=== PATIENT | female | born 1995 | race Caucasian/White ===

== ENCOUNTER 2020-02-03 13:51 | Inpatient (IN) | payer MEDICAID ==
[~2020-02-03] VITALS: Ht 170.2 cm; Wt 64.0 kg
[2020-02-03 01:30] VITALS: BP 103/62
[2020-02-03] MEDS ORDERED: ACETAMINOPHEN 325MG TABLET PO ONE (16:15)
[2020-02-03] MEDS ORDERED: LIDOCAINE HCL 1% 20ML VIAL (Pyxis) INJ INFIL ONE (18:30)
[2020-02-03] MEDS ORDERED: CEFAZOLIN 1000MG PREMIX 50 ML IV ONE (18:30)
[2020-02-03] MEDS ORDERED: ACETAMINOPHEN 325MG TABLET PO PRN (18:45)
[2020-02-03] MEDS ORDERED: HYDROCODONE/ACETAMINOPHEN 5/325MG TABLET PO PRN (18:45)
[2020-02-03] MEDS ORDERED: ONDANSETRON HCL 4MG/2ML INJ IV PRN (18:45)
[2020-02-03 20:49] LABS: BASOPHILS % 0.6 % (0.0-2.0); EOSINOPHILS % 0.4 % (0.0-5.0); HEMATOCRIT. 32.8 % (36.0-48.0); HEMOGLOBIN. 11.2 g/dL (12.0-16.0); LYMPHOCYTES % 14.5 % (20.0-50.0); MEAN CORPUSCULAR HEMOGLOBIN 29.6 pg (28.0-32.0); MEAN PLATELET VOLUME 7.4 fl (7.4-10.4); MONOCYTES % 5.9 % (2.0-8.0); NEUTROPHILS % 78.6 % (40.0-76.0); PLATELET 282 x1000/uL (130-400); RED BLOOD CELL COUNT 3.77 mill/uL (4.2-5.4); RED CELL DISTRIBUTION WIDTH 14.7 % (11.6-14.6)
[2020-02-03 20:57] LABS: CHLORIDE 106 mEq/L (98-107)
[2020-02-03 21:29] LABS: INR 0.9; PARTIAL THROMBOPLASTIN TIME 27.1 sec (23.4-31.0); PROTHROMBIN TIME 10.1 sec (9.6-11.0)
[2020-02-04 01:00] VITALS: BP 103/62
[2020-02-04 04:00] VITALS: BP 108/62
[2020-02-04 12:00] VITALS: BP 106/68
[2020-02-04] MEDS ORDERED: BACITRACIN 15GM TUBE TOP ONE (13:22)
[2020-02-04] MEDS ORDERED: BUPIVACAINE/EPINEPH/PF 0.25%/0.0005 10ML ONE ×2 (13:22→17:34)
[2020-02-04] MEDS ORDERED: BUPIVACAINE HCL/PF 0.25% (2.5MG/ML) 10ML ONE (13:22)
[2020-02-04] MEDS ORDERED: BACITRACIN 50,000 UNITS/VIAL ONE ×2 (13:22→17:39)
[2020-02-04] MEDS ORDERED: NORMAL SALINE 0.9% 10 ML SYR ONE (13:22)
[2020-02-04] MEDS ORDERED: SKIN ADHESIVE 0.7 GM EA TOP ONE (13:23)
[2020-02-04] MEDS ORDERED: EPINEPHRINE 1:1000 1 MG/ML AMP ONE (14:28)
[2020-02-04] MEDS ORDERED: VANCOMYCIN HCL 1 GM/VIAL ONE (15:18)
[2020-02-04] MEDS ORDERED: ATROPINE SULFATE 0.1MG/ML 10ML DISP.SYRIN ONE (17:39)
[2020-02-04] MEDS ORDERED: ONDANSETRON HCL 4MG/2ML INJ IV PRN (18:15)
[2020-02-04] MEDS ORDERED: HYDROCODONE/ACETAMINOPHEN 5/325MG TABLET PO PRN ×2 (18:15)
[2020-02-04] MEDS ORDERED: MAGNESIUM HYDROXIDE 400MG/5ML 30ML UDC PO PRN (18:15)
[2020-02-04] MEDS ORDERED: ACETAMINOPHEN 325MG TABLET PO PRN (18:15)
[2020-02-04] MEDS ORDERED: DIPHENHYDRAMINE INJ IV PRN (18:27)
[2020-02-04] MEDS ORDERED: MORPHINE PCA 50MG/50ML IV PRN (18:27)
[2020-02-04] MEDS ORDERED: NALOXONE INJ IV PRN (18:30)
[2020-02-04] MEDS ORDERED: ONDANSETRON INJ IV PRN (18:30)
[2020-02-04 20:00] VITALS: BP 102/55
[2020-02-04] MEDS: CEFAZOLIN 2,000 MG in DEXT 5% WATER 100 ML IV SCH ×2 (21:00→22:33)
[2020-02-05] VITALS: BP 102/69
[2020-02-05 04:00] VITALS: BP 98/55
[2020-02-05] MEDS: CEFAZOLIN 2,000 MG in DEXT 5% WATER 100 ML IV SCH (04:36)
[2020-02-05 06:37] LABS: BASOPHILS % 0.8 % (0.0-2.0); EOSINOPHILS % 0.6 % (0.0-5.0); HEMATOCRIT. 30.1 % (36.0-48.0); LYMPHOCYTES % 14.1 % (20.0-50.0); MEAN CORPUSCULAR HEMOGLOBIN 29.1 pg (28.0-32.0); MEAN CORPUSCULAR VOLUME 87.5 fL (81.0-99.0); MEAN PLATELET VOLUME 7.8 fl (7.4-10.4); MONOCYTES % 7.3 % (2.0-8.0); NEUTROPHILS % 77.2 % (40.0-76.0); PLATELET 244 x1000/uL (130-400); RED BLOOD CELL COUNT 3.44 mill/uL (4.2-5.4); RED CELL DISTRIBUTION WIDTH 14.5 % (11.6-14.6)
[2020-02-05 06:54] LABS: CHLORIDE 105 mEq/L (98-107)
[2020-02-05 08:00] VITALS: BP 92/51
[2020-02-05] MEDS ORDERED: DOCUSATE SODIUM 100MG CAPSULE PO SCH (09:00)
[2020-02-05 12:00] VITALS: BP 97/54
[2020-02-05] MEDS ORDERED: ACET650T37 MT (14:48)
[2020-02-05] MEDS ORDERED: PREN1TAB78 MT (14:48)
[2020-02-05 16:00] VITALS: BP 109/57
[2020-02-05 18:25] VITALS: BP 109/57
== END 2020-02-05 18:35 | disposition home or self-care (01) | DRG 951 ==
LOC: ER 13:51 → ENRESERV 23:49 → 6EST 02-04 00:53 → 7WST 02-04 10:08
PROVIDERS: ADMIT Internal Medicine; ATTEND Internal Medicine
PROC: 0LQN0ZZ Repair Right Lower Leg Tendon, Open Approach (ICD-10-PCS; principal; 2020-02-04)
PROC: 0JBR0ZZ Excision of Left Foot Subcutaneous Tissue and Fascia, Open Approach (ICD-10-PCS; 2020-02-04)
DX: O71.89 Other specified obstetric trauma (principal); D64.9 Anemia, unspecified; O99.012 Anemia complicating pregnancy, second trimester; Z3A.19 19 weeks gestation of pregnancy
CPT/HCPCS: 36415; 73610; 76805; 80048; 85025; 87070; 87075; 88304; 97116; 97162; 97166; 97530; J0171; J0461; J0690; J2270; J2405; J3370; J3490; J7060